=== PATIENT | male | born 1995 | race Two or more races ===

== ENCOUNTER 2021-02-19 22:41 | Inpatient (IN) | payer OTHER ==
[~2021-02-19] VITALS: Ht 190.5 cm; Wt 71.2 kg
--- NOTE | 2021-02-19 22:55 | NUR ---
PT BIBRA FROM HOME C/O DIZZINESS S/P SYNCOPAL EPISODE AT HOME WHILE EATING. +KO +HEADSTRIKE. LACERATION NOTED LEFT EYE. PT A/O X 4, RR EVEN AND UNALBORED, PATIENT CONNECTED TO COMMUNITY PRODUCT SPECIALIST AND POX, EMT AT BEDSIDE FOR WOUND CARE.
--- NOTE | 2021-02-19 23:14 | NUR ---
BLOOD COLLECTED AND SENT TO LAB.
[2021-02-19 23:18] LABS: BASOPHILS # (AUTO) 0.1 /CMM (0.0-0.2); BASOPHILS % (AUTO) 0.8 % (0.0-2.0); EOSINOPHILS % (AUTO) 1.6 % (0.0-6.0); HEMATOCRIT 43 % (39-51); HEMOGLOBIN 14.3 g/dL (13.5-17.5); LYMPHOCYTES # (AUTO) 6.6 /CMM (0.8-4.8); LYMPHOCYTES % (AUTO) 51.6 % (20.0-44.0); MEAN CORPUSCULAR HGB CONC 33 g/dl (31.0-36.0); MEAN CORPUSCULAR VOLUME 90 fL (80-96); MONOCYTES # (AUTO) 0.9 /CMM (0.1-1.30); MONOCYTES % (AUTO) 7.1 % (2.0-12.0); NEUTROPHILS % (AUTO) 38.9 % (43.0-81.0); PLATELET COUNT (AUTO) 196 /CMM (150-450); RED BLOOD CELL COUNT(AUTO) 4.79 MIL/uL (4.5-6.0); WHITE BLOOD COUNT (AUTO) 12.9 K/uL (4.3-11.0)
[2021-02-19] MEDS ORDERED: ONDANSETRON HCL/PF - ER 4 MG/2 ML VIAL IV ONE (23:30)
[2021-02-19] MEDS ORDERED: ONDANSETRON HCL/PF 4 MG/2 ML VIAL ONE (23:37)
[2021-02-19 23:39] LABS: CALCIUM, SERUM 8.9 mg/dL (8.5-10.1); CARBON DIOXIDE 23 mmol/L (21-32); CHLORIDE 103 mmol/L (98-107); CREATININE 0.9 mg/dL (0.6-1.3); GLUCOSE 112 mg/dL (74-106); SODIUM SERUM 137 mmol/L (136-145); UREA NITROGEN, BLOOD 12 mg/dL (7-18)
[2021-02-19 23:44] LABS: ALANINE AMINOTRANSFERASE 22 U/L (12-78); ALBUMIN 3.9 g/dL (3.4-5.0); ALKALINE PHOSPHATASE 47 U/L (46-116); ASPARTATE AMINOTRANSFERASE 17 U/L (15-37); BILIRUBIN,DIRECT 0.2 mg/dL (0.0-0.2); BILIRUBIN,TOTAL 1.1 mg/dL (0.2-1.0); TOTAL PROTEIN, SERUM 7.4 g/dL (6.4-8.2)
[2021-02-19 23:45] LABS: POTASSIUM 2.7 mmol/L (3.5-5.1)
--- NOTE | 2021-02-19 23:59 | NUR ---
DR SEAY AT S/B FOR LAC REPAIR
[2021-02-20] VITALS (9 sets, daily range): BP systolic 105–130; BP diastolic 62–84
--- NOTE | 2021-02-20 00:04 | NUR ---
COVID SWAB SENT TO LAB
[2021-02-20] MEDS ORDERED: LIDOCAINE 1% INJ 50 ML MDV IJ ONE (00:05)
--- NOTE | 2021-02-20 00:05 | NUR ---
[facility] CCT CALLED FOR CODE STEMI
--- NOTE | 2021-02-20 00:33 | NUR ---
CALL FROM LAB. RAPID COVID NEGATIVE.
[2021-02-20] MEDS ORDERED: POTASSIUM CHLORIDE 20 MEQ TAB.PRT.SR PO ONE ×2 (00:51→01:00)
[2021-02-20] MEDS ORDERED: Magnesium 1GM/D5W 100ML PREMIX 100 ML IV SCH (01:00)
[2021-02-20] MEDS ORDERED: NEOMY SULF/BACITRAC ZN/POLY 15 GM TUBE TP SCH (01:00)
[2021-02-20] MEDS ORDERED: MAG HYDROX/AL HYDROX/SIMETH 30 ML UDC PO PRN (01:00)
[2021-02-20] MEDS ORDERED: ACETAMINOPHEN 325 MG TABLET PO PRN (01:00)
[2021-02-20] MEDS ORDERED: ZOLPIDEM TARTRATE 5 MG TABLET PO PRN (01:00)
[2021-02-20] MEDS ORDERED: MAGNESIUM HYDROXIDE 30 ML UDC PO PRN (01:00)
[2021-02-20] MEDS ORDERED: ONDANSETRON HCL/PF 4 MG/2 ML VIAL IVP PRN (01:00)
[2021-02-20] MEDS ORDERED: Z GUARD REMEDY 2 OZ OINT TP PRN (01:00)
--- NOTE | 2021-02-20 02:10 | NUR ---
REPORT GIVEN TO TYLOR DOS SANTOS PATIENT GOING TO ROOM 119.
[2021-02-20] MEDS ORDERED: IV PREMIX 0.45% NS + KCL 1,000 ML IV ONE (02:45)
--- NOTE | 2021-02-20 02:50 | NUR ---
RN ADMITTING NOTES REC'D PT FROM ED VIA HOANG, A/O X4. PT IS ON ROOM AIR NO S/S OF RESP DISTRESS OR SOB. PT IS ON TELE MONITORING NSR WITH HEART RATE OF 84. PT AT THIS TIME DENIES PAIN AND CHEST PAIN. CHANGED INTO GOWN. RAC IV SITE FLUSHED. STARTED IVF ORDERED. PT WISHES TO BE FULL CODE. EDUCATED PT ON IMPORTANCE OF REST AND FALL RISK. ENCOURAGED USE OF URINAL REFRAIN FOR AMBULATING. GAIT UNSTEADY. PT CAME IN WITH NEWLY PLACED STITCHES AND HEAD LAC FROM ED. WOUND CONSULT ORDER FOR TOMORROW. ALL BELONGINGS ACCOUNTED FOR. SAFETY MEASURES IN PLACE. HOB ELEVATED. SIDE RAILS UP X2 BED LOCKED IN LOWEST POSITION WITH BED ALARM ON. CALL LIGHT IN REACH. WILL CONT TO MONITOR
[2021-02-20] MEDS ORDERED: Magnesium 1GM/D5W 100ML PREMIX 100 ML IV ONE (03:30)
--- NOTE | 2021-02-20 03:30 | NUR ---
RN NOTE NOTIFIED WATERMASTER ESTEFANY DODSON REGARDING PT WITH ORDER OF 1GM MAGNESIUM Q1H, LATEST MAG LEVEL IS 1.8 WNL. ORDERS FOR NEW ORDER JUST 1GM MAGNESIUM ONCE. WILL CARRY OUT.
--- NOTE | 2021-02-20 06:47 | NUR ---
RN CLOSING NOTES PT REMAINS ON ROOM AIR. RESTING. TOLERATING WELL. NO SOB OR RESP DISTRESS NOTED. NO SIGNIFICANT CHANGES IN PT CONDITION. BANDAGE STILL INTACT AT THIS TIME. PT REMAINS ON IVF ORDERED NO S/S OF INFILTRATION NOTED. SAFETY MEASURES IN PLACE HOB ELEVATED. SIDE RAILS UP X2M BED LOCKED IN LOWEST POSITION WITH BED ALARM ON. CALL LIGHT WITHIN REACH. WILL ENDORSE TO AM NURSING FOR CONT OF CARE.
--- NOTE | 2021-02-20 07:00 | NUR ---
RN NOTES RECEIVED PT ON BED, A/Ox4, NO NEUROLOGICAL DEFICIT NOTED, ON RA , NO SOB NOTED, ON TELE SR HR IN 70'S, NO DISTRESS NOTED, ABLE TO USE URINAL , IVF AT 75CC/HR RUNNING , SR UP x3, CALL LIGHT WITHIN EASY REACH, BED LOCKED AND IN LOWEST POSITION, CONTINUE TO MONITOR.
[2021-02-20 07:56] LABS: CALCIUM, SERUM 8.7 mg/dL (8.5-10.1); CREATININE 0.9 mg/dL (0.6-1.3); POTASSIUM 4.2 mmol/L (3.5-5.1)
[2021-02-20] MEDS: HYDROCODONE/APAP 5/325MG TABLET PO PRN ×2 (08:21→15:20)
--- NOTE | 2021-02-20 09:00 | NUR ---
RN NOTES ORTHOSTATIC BP LAYING HR=59 BP 113/64 SITTING HR =66 BP 127/78 STANDING HR=77 BP 124/84
[2021-02-20 09:27] LABS: THYROID STIMULATING HORMONE 0.545 uIU/mL (0.358-3.74)
--- NOTE | 2021-02-20 09:47 | NUR ---
WOUND CARE CONSULT: PT SEEN FOR LEFT EYEBROW SUTURED LACERATION, PRESENT ON ADMISSION. PERIORBITAL AREA IS DISCOLORED AND SOME SWELLING NOTED TO FOREHEAD BUT NO ACTIVE BLEEDING. DISCUSSED SKIN PROTECTION WITH NURSING STAFF. WILL SEE PRN.
--- NOTE | 2021-02-20 18:00 | NUR ---
RN NOTES PT KLEVER ANY DISTRESS , NO SIGNIFICANT CHANGES NOTED ON THIS SHIFT, WILL ENDORSE TO COURT MESSENGER NURSE FOR CONTINUITY OF CARE .
[2021-02-21] VITALS: BP 114/78
[2021-02-21 04:00] VITALS: BP 120/64
[2021-02-21 06:39] LABS: BASOPHILS % (AUTO) 0.4 % (0.0-2.0); EOSINOPHILS % (AUTO) 0.7 % (0.0-6.0); HEMATOCRIT 45 % (39-51); HEMOGLOBIN 14.9 g/dL (13.5-17.5); LYMPHOCYTES # (AUTO) 3.2 /CMM (0.8-4.8); LYMPHOCYTES % (AUTO) 33.9 % (20.0-44.0); MEAN CORPUSCULAR HGB CONC 33 g/dl (31.0-36.0); MEAN CORPUSCULAR VOLUME 90 fL (80-96); MONOCYTES # (AUTO) 0.9 /CMM (0.1-1.30); MONOCYTES % (AUTO) 9.8 % (2.0-12.0); NEUTROPHILS # (AUTO) 5.2 /CMM (1.8-8.9); NEUTROPHILS % (AUTO) 55.2 % (43.0-81.0); PLATELET COUNT (AUTO) 168 /CMM (150-450); RED BLOOD CELL COUNT(AUTO) 5.01 MIL/uL (4.5-6.0); WHITE BLOOD COUNT (AUTO) 9.4 K/uL (4.3-11.0)
[2021-02-21 07:16] LABS: CALCIUM, SERUM 8.9 mg/dL (8.5-10.1); MAGNESIUM 2.1 mg/dL (1.8-2.4); PHOSPHORUS 3.6 mg/dL (2.5-4.9)
--- NOTE | 2021-02-21 07:52 | NUR ---
INFORMATION TECHNOLOGY TEACHER NOTE PATIENT IN BED RESTING COMFORTABLY SLEEPING AT THIS TIME ON TELE MONITOR HR 75 , SR , RT AC HL IN PLACE , BED IN LOWEST AND LOCKED POSITION , SAFETY MEASURE IMPLEMENTED, NO SOB NOTED , WILL CONT TO MONITOR CLOSELY
[2021-02-21 09:03] VITALS: BP 115/52
--- NOTE | 2021-02-21 10:27 | NUR ---
MS RN NOTE PER HAM ASCENCIO RN DIGITAL FORENSIC ANALYST OK TO D\C HOME
--- NOTE | 2021-02-21 12:11 | NUR ---
ms rn note discharge instruction given, understands. instructed to f\u with primary and dredge pipeman to f\u dr ramos dredge pipeman phone number given, belonging checked , rt ac hl removed , no bleeding noted, refused to do picture , upon discharge stated just was george yesterday , patient right is respected
--- NOTE | 2021-02-21 13:54 | NUR ---
ms rn note patient family at bedside , went home with stable condition
== END 2021-02-21 14:10 | disposition home or self-care (01) | DRG 73 ==
LOC: ER 22:45 → TELE1 02-20 01:39 → MEDSG1 02-21 08:19
PROVIDERS: ADMIT Nurse Practitioner Acute Care; ATTEND Nurse Practitioner Acute Care
DX: G90.8 Other disorders of autonomic nervous system (principal); G92 Toxic encephalopathy; Y92.009 Unspecified place in unspecified non-institutional (private) residence as the place of occurrence of the external cause; W19.XXXA Unspecified fall, initial encounter; S01.112A Laceration without foreign body of left eyelid and periocular area, initial encounter; E87.6 Hypokalemia; D72.829 Elevated white blood cell count, unspecified; F10.10 Alcohol abuse, uncomplicated; F12.90 Cannabis use, unspecified, uncomplicated; Y90.0 Blood alcohol level of less than 20 mg/100 ml; R94.31 Abnormal electrocardiogram [ECG] [EKG]; Z20.822 Contact with and (suspected) exposure to COVID-19
CPT/HCPCS: 36415; 70450-TC; 71045-TC; 72125-TC; 80048-TC; 80061-TC; 80076-TC; 83690-TC; 83735-TC; 84100-TC; 84439-TC; 84443-TC; 84484-TC; 85025-TC; 85730-TC; 87081-TC; 92526; 92611-TC; 93307-TC; A6403; C9803; G0378; G0480; J2405; J3475; J3480; J3490; J7050

== ENCOUNTER 2023-02-06 11:28 | Emergency (ER) | payer BC, MEDICAID ==
[~2023-02-06] VITALS: Ht 188 cm; Wt 68.0 kg
[2023-02-06 11:31] VITALS: BP 135/66
--- NOTE | 2023-02-06 11:32 | NUR ---
PT WALKED INTO ER FOR LEFT EAR "CYST" FOR 1 MONTH. PT AMBULATED TO BED WITH STEADY GAIT, BREATHING EVEN AND UNLABORED. AWAITING MD FOR EVAL
--- NOTE | 2023-02-06 11:39 | NUR ---
AT BEDSIDE FOR I&D PROCEDURE.
[2023-02-06] MEDS ORDERED: LIDOCAINE /MPF 1% VIAL 5 ML VIAL ONE (12:29)
[2023-02-06] MEDS ORDERED: LIDOCAINE 1% INJ 50 ML MDV IJ ONE (12:30)
[2023-02-06] MEDS ORDERED: SULF1TAB48 PO (13:22)
[2023-02-06] MEDS ORDERED: CEPH500C2 PO (13:22)
== END 2023-02-06 13:39 | disposition home or self-care (01) ==
LOC: ER 11:30
DX: Q18.0 Sinus, fistula and cyst of branchial cleft (principal)
CPT/HCPCS: 10060; 99282; J3490; A6407

== ENCOUNTER 2023-07-27 11:28 | Emergency (ER) | payer MEDICAID, OTHER ==
[~2023-07-27] VITALS: Ht 190.5 cm; Wt 72.6 kg
[~2023-07-27 11:28] MED LIST: CEPH500C2 PO; SULF1TAB48 PO
[2023-07-27] MEDS ORDERED: LIDOCAINE HCL/MPF 1% 30 ML VIAL IJ ONE (11:51)
[2023-07-27] MEDS ORDERED: CEPH500C2 PO (14:22)
[2023-07-27] MEDS ORDERED: SULF1TAB48 PO (14:22)
[2023-07-27 14:44] VITALS: BP 112/53; TEMP 98; O2SAT 100
== END 2023-07-27 14:45 | disposition home or self-care (01) ==
LOC: ER 11:38
DX: Q18.0 Sinus, fistula and cyst of branchial cleft (principal); L02.11 Cutaneous abscess of neck
CPT/HCPCS: 99283; 10060; J3490